=== PATIENT | male | born 1950 | race Caucasian/White ===

== ENCOUNTER → 2018-09-04 10:02 | Outpatient (CLI) | payer MEDICARE, SELFPAY | PROVIDERS: PCP Emergency Medicine; Visit Provider Podiatrist | DX: E11.9 Type 2 diabetes mellitus without complications (principal) | CPT/HCPCS: 97802 ==

== ENCOUNTER → 2018-09-14 10:01 | Outpatient (CLI) | payer MEDICARE, SELFPAY ==
--- NOTE | 2018-09-14 10:07 | US_ITS ---
US Arterial Ankle Brachial Ind History: ITS.REASON: Skin Changes, claudication, leg pain, hypertension, diabetes ORDERING PHYSICIAN: Karina Pavon DPM PATIENT AGE: 67 years TECHNIQUE: Segmental pressures obtained of both right and left leg. These are compared to brachial blood pressure to yield index at each level sampled including summary MARIZA. The data sheets from the procedure are available in PACS FINDINGS Rest study only performed today No prior studies available for comparison. Blood pressures reported are in millimeters mercury. RIGHT LEG MARIZA = 1.4. RIGHT LEG TBI=1.3 Brachial BP: 143 Thigh BP: 170 Calf BP: 190 Ankle PT: 194 Ankle DP : 195 Digit =152 LEFT LEG MARIZA = 1.3 LEFT LEG TBI= 1 Brachial BPD: 144 Thigh BP: 192 Calf BP: 200 Ankle PT:193 Ankle DP: 190 Digit = 150 Pulses and waveforms: Normal IMPRESSION: The ABIs as reported above are upper limits of normal. Waveforms and pulses are also unremarkable.
== END ==
PROVIDERS: PCP Emergency Medicine; Visit Provider Podiatrist
DX: R09.89 Other specified symptoms and signs involving the circulatory and respiratory systems (principal)
CPT/HCPCS: 93922

== ENCOUNTER → 2020-12-09 15:34 | Outpatient (CLI) | payer MEDICARE, SELFPAY ==
--- NOTE | 2020-12-09 15:56 | ECG_ITS ---
APPROVED REPORT Exam: Resting ECG HR:68 bpm ECG Measurements Heart Rate 68 AXES [place] 204 P 35 QRSd 92 QRS -20 QT 410 T -14 QTc 435 Conclusion Normal sinus rhythm Inferior infarct, age undetermined Abnormal ECG Electronically signed by : Colt Chiu, 12/09/2020 17:45:59
== END ==
PROVIDERS: PCP Family Medicine; Visit Provider Family Medicine
DX: Z01.818 Encounter for other preprocedural examination (principal)
CPT/HCPCS: 93005

== ENCOUNTER → 2021-07-08 12:29 | Outpatient (CLI) | payer MEDICARE, SELFPAY ==
--- NOTE | 2021-07-08 12:33 | XR_ITS ---
PROCEDURE: XR CHEST PORTABLE CLINICAL HISTORY: COVID TESTING COMPARISON: CT [facility] CT CHEST W/O CONTRAST from 05/20/2013 CR CXR CHEST(2 VIEWS-NOT PORTABLE) from 05/20/2013 FINDINGS: Exam is limited secondary to portable technique and patient body habitus. There are faint increased markings in the right upper and right lower lung which could be due to developing infiltrate. Normal heart size. No effusions. No acute bony abnormalities. IMPRESSION: Patchy areas of infiltrate in the right upper and right lower lobe Dictated by: Indra Carter MD 07/08/2021 15:22 Indra Carter MD in [place] 07/08/2021 15:22
[2021-07-08 13:30] LABS: Basophils % 0.4 % (0.1-2.0); Eosinophils % 0.1 % (0.1-12.0); Hematocrit 42.1 % (42.0-52.0); Hemoglobin 13.9 g/dL (14.1-18.0); Lymphocytes # 1.2 K/mm3 (0.7-4.5); Lymphocytes % 15.1 % (10-50); Mean Corpuscular Hemoglobin 31.6 pg (27.0-31.2); Mean Corpuscular Volume 95.8 fl (80-94); Mean Platelet Volume 8.4 fl (7.4-10.4); Monocytes # 0.4 K/mm3 (0.1-1.0); Monocytes % 4.6 % (1.7-9.3); Neutrophils # 6.5 K/mm3 (1.8-7.8); Neutrophils % 79.7 % (37.0-80.0); Platelet Count 186 K/mm3 (142-424); White Blood Count 8.1 K/mm3 (4.8-10.8)
== END ==
PROVIDERS: PCP Family Medicine; Visit Provider Physician Assistant
DX: Z20.822 Contact with and (suspected) exposure to COVID-19 (principal); U07.1 COVID-19
CPT/HCPCS: 36415; 71045; 85025; C9803; U0003; U0005

== ENCOUNTER 2021-07-10 07:22 | Outpatient (CLI) | payer MEDICARE, SELFPAY ==
[2021-07-10 08:45] VITALS: BP 126/53; PULSE 61; RESP 16; TEMP 37; O2SAT 95
[2021-07-10 09:00] VITALS: BP 113/60; PULSE 58; RESP 16; O2SAT 94
[2021-07-10 09:15] VITALS: BP 121/59; PULSE 60; RESP 16; O2SAT 95
[2021-07-10 10:11] VITALS: BP 131/58; PULSE 53; RESP 16; TEMP 36.9; O2SAT 93
== END 2021-07-10 10:12 | disposition home or self-care (01) ==
LOC: INF 07:24
PROVIDERS: PCP Family Medicine; Visit Provider Physician Assistant
DX: U07.1 COVID-19 (principal)
CPT/HCPCS: 96365

== ENCOUNTER → 2021-07-28 11:45 | Outpatient (CLI) | payer MEDICARE, SELFPAY ==
--- NOTE | 2021-07-28 11:49 | XR_ITS ---
PROCEDURE: XR CHEST PORTABLE CLINICAL HISTORY: COVID OUTPATIENT COMPARISON: CT [facility] CT CHEST W/O CONTRAST from 05/20/2013 CR CXR CHEST(2 VIEWS-NOT PORTABLE) from 05/20/2013 CR XR CHEST PORTABLE from 07/08/2021 FINDINGS: There is mild cardiomegaly without failure. No lobar consolidation or collapse evident. Previous areas of consolidation have improved. Study is somewhat limited due to the portable technique and patient's body habitus. No acute bony abnormalities. IMPRESSION: Mild cardiomegaly otherwise negative Dictated by: Indra Carter MD 07/28/2021 14:35 Indra Carter MD in [place] 07/28/2021 14:35
[2021-07-28 12:54] LABS: D-Dimer 0.86 ug/mL (0.0-0.5)
[2021-07-28 13:01] LABS: Chloride 99 mmol/L (98-107); Potassium 4.6 mmoL/L (3.5-5.1); Sodium 134 mmol/L (136-145)
[2021-07-28 13:03] LABS: Blood Urea Nitrogen 10 mg/dl (9-20); Estimated Glomerular Filt Rate 111 ml/min (>60); GFR (African American) 134 ML/MIN (>60)
[2021-07-28 13:04] LABS: Alanine Aminotransferase 46 U/L (12-78); Albumin Level 3.8 g/dl (3.5-5.0); Albumin/Globulin Ratio 1.3 (1.1-1.8); Alkaline Phosphatase 116 U/L (38-126); Anion Gap 12.6 mEq/L (5-15); Aspartate Amino Transferase 46 U/L (17-59); Bilirubin,Total 0.3 mg/dl (0.2-1.3); Carbon Dioxide 27 mmol/L (22.0-30.0); Total Protein,Serum 6.8 g/dl (6.3-8.2)
[2021-07-28 13:05] LABS: Calcium 9.5 mg/dl (8.4-10.2); Glucose 246 mg/dl (74-100)
[2021-07-28 13:08] LABS: Basophils # 0.1 K/mm3 (0-0.2); Basophils % 0.9 % (0.1-2.0); Eosinophils # 0.4 K/mm3 (0.0-0.4); Eosinophils % 4.7 % (0.1-12.0); Hematocrit 44.7 % (42.0-52.0); Hemoglobin 14.2 g/dL (14.1-18.0); Lymphocytes # 1.5 K/mm3 (0.7-4.5); Lymphocytes % 17.9 % (10-50); Mean Corpuscular HGB Conc 31.7 g/dL (31.8-35.4); Mean Corpuscular Hemoglobin 31.1 pg (27.0-31.2); Mean Corpuscular Volume 97.8 fl (80-94); Mean Platelet Volume 7.5 fl (7.4-10.4); Monocytes # 0.5 K/mm3 (0.1-1.0); Monocytes % 5.6 % (1.7-9.3); Neutrophils % 70.9 % (37.0-80.0); Platelet Count 212 K/mm3 (142-424); Red Blood Count 4.57 M/mm3 (4.60-6.20); Red Cell Distribution Width 13.2 % (11.5-17.5); White Blood Count 8.4 K/mm3 (4.8-10.8)
== END ==
PROVIDERS: PCP Physician Assistant; Visit Provider Physician Assistant
DX: U09.9 Post COVID-19 condition, unspecified (principal); R79.89 Other specified abnormal findings of blood chemistry
CPT/HCPCS: 36415; 71045; 80053; 85025; 85378

== ENCOUNTER 2022-12-26 11:00 | Outpatient (RCR) | payer MEDICARE, SELFPAY | END 2022-12-26 11:05 | disposition home or self-care (01) | LOC: OT 11:00 | PROVIDERS: PCP Physician Assistant | DX: M19.011 Primary osteoarthritis, right shoulder (principal); M24.511 Contracture, right shoulder; M75.41 Impingement syndrome of right shoulder; M75.51 Bursitis of right shoulder | CPT/HCPCS: 97010; 97014; 97110; 97140; 97164; 97166; 97530; G0283 ==

== ENCOUNTER → 2023-07-25 09:39 | Outpatient (CLI) | payer MEDICARE, SELFPAY ==
--- NOTE | 2023-07-25 09:43 | XR_ITS ---
FINAL REPORT CLINICAL HISTORY: Rt shoulder pain x 6 months. pain travels down right arm. COMPARISON: None FINDINGS: RIGHT SHOULDER: 3 views of the right shoulder were obtained. There is no acute fracture or dislocation.There is mild acromioclavicular degenerative change, with moderate glenohumeral degenerative change and probable subchondral cysts in the proximal right humeral head. There is no soft tissue abnormality. IMPRESSION: No acute fracture Mild AC degenerative change, with moderate glenohumeral degenerative change and probable subchondral cysts in the proximal right humeral head. Reviewed, Interpreted and Dictated by Nahun Quiles III, MD Transcribed by Sarah Beth Butts Authenticated and [facility]
== END ==
PROVIDERS: PCP Family Medicine; Visit Provider Orthopaedic Surgery
DX: M25.511 Pain in right shoulder (principal)
CPT/HCPCS: 73030

== ENCOUNTER 2024-03-15 19:35 | Emergency (ER) | payer MEDICARE, SELFPAY ==
[2024-03-15 19:36] VITALS: BP 116/60; PULSE 79; RESP 20; TEMP 37.1; O2SAT 96; BMI 43.0
--- NOTE | 2024-03-15 19:51 | XR_ITS ---
PROCEDURE INFORMATION: Exam: XR Chest Exam date and time: 03/15/2024 9:05 PM Age: 73 years old Clinical indication: Dyspnea TECHNIQUE: Imaging protocol: Radiologic exam of the chest. Views: 1 view. COMPARISON: CR XR CHEST PORTABLE 07/28/2021 12:00 PM FINDINGS: Lungs: Lung volumes are low. Pleural spaces: Unremarkable. No pleural effusion. No pneumothorax. Heart/Mediastinum: Unremarkable. No cardiomegaly. Vasculature: Unremarkable. Bones/joints: Significant degenerative changes of the left glenohumeral joint. Other findings: The positioning is lordotic in nature. IMPRESSION: No overt failure or focal consolidation. The posterior lung bases are poorly evaluated.
[2024-03-15] MEDS: LACTATED RINGERS 1000ML 1,000 ML 999 ML IV (20:05)
[2024-03-15 20:07] LABS: Basophils # 0.1 K/mm3 (0-0.2); Basophils % 0.8 % (0.1-2.0); Eosinophils # 0.1 K/mm3 (0.0-0.4); Eosinophils % 1.4 % (0.1-12.0); Hematocrit 41.9 % (42.0-52.0); Influenza A, PCR Not Detected (NotDetected); Influenza B, PCR Not Detected (NotDetected); Lymphocytes % 9.8 % (10-50); Mean Corpuscular HGB Conc 33.3 g/dL (31.8-35.4); Mean Corpuscular Hemoglobin 32.6 pg (27.0-31.2); Mean Corpuscular Volume 98.1 fl (80-94); Mean Platelet Volume 8.2 fl (7.4-10.4); Monocytes # 0.6 K/mm3 (0.1-1.0); Monocytes % 5.7 % (1.7-9.3); Neutrophils # 8.2 K/mm3 (1.8-7.8); Neutrophils % 82.3 % (37.0-80.0); Platelet Count 126 K/mm3 (142-424); Red Blood Count 4.28 M/mm3 (4.60-6.20); Red Cell Distribution Width 13.8 % (11.5-17.5); White Blood Count 9.9 K/mm3 (4.8-10.8)
[2024-03-15 20:12] LABS: Chloride 99 mmol/L (98-107); Potassium 4.3 mmoL/L (3.5-5.1); Sodium 133 mmol/L (136-145)
[2024-03-15 20:15] LABS: Alanine Aminotransferase 48 U/L (12-78); Albumin Level 4.3 g/dl (3.5-5.0); Albumin/Globulin Ratio 1.1 (1.1-1.8); Alkaline Phosphatase 116 U/L (38-126); Anion Gap 12.3 mEq/L (5-15); Aspartate Amino Transferase 52 U/L (17-59); Bilirubin,Total 0.8 mg/dl (0.2-1.3); Blood Urea Nitrogen 20 mg/dl (9-20); Calcium 9.3 mg/dl (8.4-10.2); Carbon Dioxide 26 mmol/L (22.0-30.0); Estimated Glomerular Filt Rate 65 ml/min (>60); GFR (African American) 79 ML/MIN (>60); Globulin 3.8 g/dL (1.3-3.2); Glucose 233 mg/dl (74-100); Total Protein,Serum 8.1 g/dl (6.3-8.2)
--- NOTE | 2024-03-15 20:16 | HMH.EDGENADL ---
Discharge Plan Disposition Patient Disposition: Home, Self-Care Prescriptions Prescriptions: New benzonatate 100 mg capsule 100 mg PO TID PRN (Reason: cough) 5 Days Qty: 20 0RF Paxlovid 300 mg (150 mg x 2)-100 mg tablets,dose pack See Rx Instructions .ROUTE .COMPLEX Qty: 30 0RF Rx Instructions: take TWO 150 mg tablets of nirmatrelvir with ONE 100 mg tablet of ritonavir twice daily for 5 days No Action simvastatin 20 mg tablet 20 mg PO DAILY 30 Days Trulicity 3 mg/0.5 mL pen injector SQ Patient Comments: USE as directed INJECT Subcutaneous cholecalciferol (vitamin D3) 125 mcg (5,000 unit) capsule 125 mcg PO DAILY glimepiride 4 mg tablet 4 mg PO DAILY metformin 850 mg tablet 850 mg PO DAILY Patient Comments: TAKE 1 TABLET BY MOUTH TWICE DAILY WITH A MEAL Skyrizi 150 mg/mL syringe SQ allopurinol 100 MG tablet 100 mg PO DAILY finasteride 5 MG tablet 5 mg PO DAILY Referrals Follow up/Referrals: Vasu Conway MD [Primary Care Provider] - See instructions Clinical Impressions Clinical Impression: COVID-19, Generalized weakness Discharge ED Provider: Freedom Rodríguez General Adult HPI General Chief complaint: Upper Respiratory Infection Stated complaint: fever, cough, sore throat, congestion Time Seen by Provider: 03/15/24 19:39 History of Present Illness HPI narrative: Patient is a 73-year-old male presents today with generalized fatigue cough sore throat and a low-grade temp at home. His was recently diagnosed with COVID just a few days ago and he is now symptomatic. He also has profound weakness fell last night had difficult time getting up but that is off of his baseline. Related Data Home Medications Medication Instructions Recorded Confirmed simvastatin 20 mg tablet 20 mg PO DAILY Cholesterol 30 days 08/28/18 02/22/24 allopurinol 100 mg tablet 100 mg PO DAILY GOUT 08/08/19 02/22/24 finasteride 5 mg tablet 5 mg PO DAILY prostate 11/15/19 02/22/24 glimepiride 4 mg tablet 4 mg PO DAILY 05/31/23 02/22/24 dulaglutide 3 mg/0.5 mL mg SQ 08/30/23 02/22/24 subcutaneous pen injector (Trulicity) metformin 850 mg tablet 850 mg PO DAILY 11/29/23 02/22/24 risankizumab-rzaa 150 mg/mL mg SQ 11/29/23 02/22/24 subcutaneous syringe (Skyrizi) cholecalciferol (vitamin D3) 125 125 mcg PO DAILY 02/22/24 02/22/24 mcg (5,000 unit) capsule Previous Rx's Medication Instructions Recorded benzonatate 100 mg capsule 100 mg PO TID PRN cough 5 days #20 03/15/24 caps nirmatrelvir 300 mg (150 mg See Rx Instructions PO .COMPLEX 03/15/24 x2)-ritonavir 100 mg tablet,dose #30 tabs pack (Paxlovid) Allergies Allergy/AdvReac Type Severity Reaction Status Date / Time No Known Allergies Allergy Verified 02/22/24 13:13 [facility] Disclaimer: The information contained in this section may have been updated after the patient was seen, as this information can be updated by other users. Medical History (Updated 03/15/24 @ 20:21 by Freedom Rodríguez MD) Decreased sensation of lower extremity Secondary osteoarthritis, right shoulder Diabetes mellitus, without long-term current use of insulin Psoriasis Type 2 diabetes mellitus with diabetic neuropathy, unspecified Family History (Updated 02/22/24 @ 13:17 by Daphney Osei MA) Father Heart disease Hypertension Mother Depression Social History Smoking Status: Never smoker alcohol intake: never substance use type: denies use current occupational status: retired Travel in the last 8 weeks: None household members: spouse housing: house current occupational exposures/hazards: No caffeine: No ROS Obtained: Yes All systems reviewed & no additional complaints except as documented Physical Exam General General appearance: alert and in no apparent distress Respiratory Respiratory exam: Present normal lung sounds bilaterally; Absent respiratory distress Cardiovascular Cardiovascular exam: Present regular rate and normal rhythm Neurological Exam Neurological exam: Present alert and oriented X3 Medical Decision Making Marcelo Inquiry Pt receiving controlled substance: No Vital Signs: 03/15/24 19:36 Temperature 98.7 F Temperature Source Oral Pulse Rate [Right] 79 Respiratory Rate 20 Blood Pressure [Right Arm] 116/60 Blood Pressure Mean [Right Arm] 78 Blood Pressure Source [Right Arm] Automatic Cuff 02 Sat by Pulse Oximetry 96 Oxygen Delivery Method Room Air Lab Data Lab results reviewed: Yes I reviewed the patient's lab results. Lab Results 03/15/24 19:48: WBC 9.9, RBC 4.28 L, Hgb 14.0 L, Hct 41.9 L, MCV 98.1 H, MCH 32.6 H, MCHC 33.3, RDW 13.8, Plt Count 126 L, MPV 8.2, Neut % (Auto) 82.3 H, Lymph % (Auto) 9.8 L, [place] % (Auto) 5.7, Eos % (Auto) 1.4, Baso % (Auto) 0.8, Neut # (Auto) 8.2 H, Lymph # (Auto) 1.0, [place] # (Auto) 0.6, Eos # (Auto) 0.1, Baso # (Auto) 0.1, Sodium 133 L, Potassium 4.3, Chloride 99, Carbon Dioxide 26, Anion Gap 12.3, BUN 20, Creatinine 1.10, Estimated GFR 65, Est GFR ( Amer) 79, Glucose 233 H, Calcium 9.3, Total Bilirubin 0.8, AST 52, ALT 48, Alkaline Phosphatase 116, Troponin I < 0.01, NT-Pro-B Natriuret Pep 158, Total Protein 8.1, Albumin 4.3, Globulin 3.8 H, Albumin/Globulin Ratio 1.1, SARS-CoV-2 (PCR) Detected A, Influenza A Untype (PCR) Not detected, Influenza Type B (PCR) Not detected 03/15/24 19:48 03/15/24 19:48 Orders (Tests/Meds): ED MEDICATIONS Discontinued Medications Generic Name Dose Route Start Last Admin Trade Name Bart PRN Reason Stop Dose Admin Lactated Ringer's 1,000 mls @ 999 mls/hr 03/15/24 20:00 03/15/24 20:05 Lactated Ringer's 1000 Ml Bag IV 03/15/24 21:00 999 mls/hr .Q1H1M DILCIA Administration ORDERS Category Date Time Status CXR --portable [XR chest portable] Stat Exams 03/15/24 19:51 Taken BNP [NT Pro Brain Natriuretic Pep.] Stat Lab 03/15/24 19:48 Completed CBC w/Auto Diff [Complete Blood Count Auto Diff] Stat Lab 03/15/24 19:48 Completed CMP [Comprehensive Metabolic Panel] Stat Lab 03/15/24 19:48 Completed Rapid PCR Covid and Flu A/B Stat Lab 03/15/24 19:48 Completed Trop I [Troponin I] Stat Lab 03/15/24 19:48 Completed Troponin I Q3H Lab 03/15/24 23:00 Ordered Troponin I Q3H Lab 03/16/24 02:00 Ordered Medical Decision Narrative: Patient is a 73-year-old with generalized weakness and symptoms consistent with COVID-19 given his close household contact. Patient's probability is high if the test is negative it would be likely a false negative will likely prescribe Paxlovid to this patient if he is positive. I am working up his generalized weakness to see if there is any alternative explanation could be associated with this. Reassessment 931 chest x-ray performed to person interpreted shows poor inspiratory film with no focal obvious abnormality. Patient does have some thrombocytopenia which is nonspecific. He has positive for COVID. Given his age will prescribe Paxlovid. Return precautions emphasized he has a home pulse oximeter and will return with oxygen saturations less than 88 significant shortness of breath or other concerns. Critical Care Critical Care Time Critical Care Time: No
[2024-03-15 20:25] LABS: NT Pro Brain Natriuretic Pep. 158 pg/mL (0-450)
[2024-03-15 20:27] LABS: Coronavirus 19, PCR Detected (NotDetected)
[2024-03-15 20:28] LABS: Troponin I < 0.01 ng/ml (0.00-0.034)
[2024-03-15 20:30] VITALS: BP 136/61; PULSE 79; O2SAT 95
[2024-03-15 21:01] VITALS: BP 156/78; PULSE 79; O2SAT 96
[2024-03-15 21:30] VITALS: BP 159/80; PULSE 77; O2SAT 97
[2024-03-15 21:37] VITALS: BP 159/80; PULSE 77; RESP 16; TEMP 36.9; O2SAT 97
== END 2024-03-15 21:45 | disposition home or self-care (01) ==
PROVIDERS: Emergency Provider Student in an Organized Health Care Education/Training Program; PCP Family Medicine
DX: U07.1 COVID-19 (principal); R53.1 Weakness; R07.0 Pain in throat; R50.9 Fever, unspecified; R05.9 Cough, unspecified; E11.65 Type 2 diabetes mellitus with hyperglycemia; Z79.84 Long term (current) use of oral hypoglycemic drugs; Z79.85 Long-term (current) use of injectable non-insulin antidiabetic drugs; W19.XXXA Unspecified fall, initial encounter
CPT/HCPCS: 71045; 80053; 83880; 84484; 85025; 87636; 96360; 99284; J7120